=== PATIENT | female | born 1965 | race Caucasian/White ===

== ENCOUNTER → 2017-01-02 | Day surgery (SDC) | payer OTHER ==
[~2017-01-02] MED LIST: ALBU17I INH; AMLO5TAB96 PO; BUPIVACAINE HCL PF 0.5% 10 ML VIAL ONE; FURO20 PO; IRON18TA PO; KCL10 PO; LACTATED RINGER'S 1000 ML INJ 1,000 ML ONE; LEVA500T PO; MIDAZOLAM HCL 2 MG/2 ML VIAL ONE; ONDANSETRON HCL 4 MG/2 ML VIAL IV PUSH ONE; PROPOFOL 200 MG/20 ML AMP IV ONE; VITA100032 PO; Z.0.OXYGENDME NC; ceFAZolin 2 GM PREMIX 50 ML ONE
--- NOTE | 2017-01-02 12:32 | TN ---
cc: LETY MCCARTHY DATE OF SURGERY: 01/02/2017 PREOPERATIVE DIAGNOSIS Microcalcifications in the left breast and inability to undergo image-guided biopsy. POSTOPERATIVE DIAGNOSIS Microcalcifications in the left breast and inability to undergo image-guided biopsy. PROCEDURE PERFORMED Left breast needle-localized lumpectomy. SURGEON Lety Mccarthy ANESTHESIA General via LMA device. INDICATION The patient is a 51-year-old morbidly obese female with an area of microcalcifications in the upper outer left breast. Due to her body habitus, she is unable to undergo stereotactic biopsy and now presents for a needle-localized lumpectomy. FINDINGS At the time of surgery specimen mammogram did demonstrate an intact wire and the microcalcifications were present. PROCEDURE PERFORMED After informed consent was obtained and site verification was performed, the patient was brought to the radiology suite where she underwent needle localization of her microcalcifications which were located at 2 o'clock 9 cm from the nipple. She was then brought to the major operating room where she underwent general anesthesia via an LMA device. She was given a single dose of IV Ancef and sequential compression hose were placed. The left breast was prepped and draped in sterile fashion. The wire was quite distant from the periareolar location and was only 2 cm into the breast tissue. For this reason, it was elected to proceed with an incision near the wire to minimize the risk of dislodging it. An incision was anesthetized in the 2 o'clock location of the breast and the area was incised sharply for a distance of 2 cm. Sharp and electrocautery dissection was then performed until the wire entry point through the skin was immediately identified and secured with a hemostat. The wire was cut off at the skin with pin cutters and a 2-0 silk transfixion suture was placed at the wire entry point into the breast tissue. Both sharp and electrocautery dissection were then performed circumferentially beyond the tip of the wire. The specimen was oriented with two sutures laterally, one long suture anteriorly, and one short suture superiorly. The specimen was sent to x-ray with the findings as noted and it was then sent for permanent pathologic evaluation. Hemostasis was easily obtained with electrocautery and the wound was closed using interrupted 3-0 Vicryl subcutaneous suture and 4-0 Monocryl subcuticular suture. Steri-Strips and a sterile dressing were applied. The patient tolerated the procedure well with minimal blood loss and she was extubated in the operating room and brought to the recovery room in good condition. All sponge and needle counts were correct at the conclusion of the case. MD STEFFEN Hoffman/ADRIANNA /12:18 PM /12:24 PM
== END | disposition home or self-care (01) ==
LOC: ESDC 08:34
PROVIDERS: ATTEND Surgery
DX: R92.0 Mammographic microcalcification found on diagnostic imaging of breast (principal); E66.01 Morbid (severe) obesity due to excess calories
CPT/HCPCS: 00400; 19125; 88305; J0690; J2250; J2405; J3010; J7120; 88307

== ENCOUNTER → 2017-07-15 | Outpatient (CLI) | payer OTHER ==
[~2017-07-15] MED LIST changes: -BUPIVACAINE HCL PF 0.5% 10 ML VIAL ONE; -LACTATED RINGER'S 1000 ML INJ 1,000 ML ONE; -MIDAZOLAM HCL 2 MG/2 ML VIAL ONE; -ONDANSETRON HCL 4 MG/2 ML VIAL IV PUSH ONE; -PROPOFOL 200 MG/20 ML AMP IV ONE; -ceFAZolin 2 GM PREMIX 50 ML ONE
--- NOTE | 2017-07-18 08:58 | RSPPFT ---
DATE OF PROCEDURE: 07/15/17 COMMENTS: Spirometry with FVC of 3.2 predicted 3.8, FEV1 of 2.0 predicted 3.1, FEV1/FVC ratio 63% predicted 82%. Post-bronchodilator FEV1 increases to 2.2. Mild air trapping is present with RV at 2.1 predicted 2.1. DLCO is 67% of predicted. IMPRESSION: On the basis of the above, patient has an obstructive lung defect with borderline response to acutely inhaled bronchodilator. Minimal air trapping is present. Airways resistance is increased.
--- NOTE | 2017-07-22 13:54 | RSPPFT ---
DATE OF PROCEDURE: 07/15/17 COMMENTS: Spirometry with FVC 3.2 predicted 3.8, FEV1 of 2.0 predicted 3.1, FEV1/FVC ratio 63% predicted 82%. Post-bronchodilator FEV1 increases to 2.2. Mild air trapping is present with RV at 2.1 predicted 2.11. DLCO is 67% of predicted. IMPRESSION: On the basis of the above, patient has an obstructive lung defect with responsiveness to acutely inhaled bronchodilator and increased airways resistance.
== END ==
LOC: HRSP 12:22
PROVIDERS: ATTEND Internal Medicine Pulmonary Disease
DX: J45.909 Unspecified asthma, uncomplicated (principal)
CPT/HCPCS: 94060; 94726; 94729